=== PATIENT | female | born 1960 | race Caucasian/White ===

== ENCOUNTER → 2017-05-09 14:12 | Outpatient (CLI) | payer OTHER, SELFPAY ==
[2017-05-09 14:07] VITALS: BMI 32.4
--- NOTE | 2017-05-09 14:14 | RAD_ITS ---
STUDY: X-RAY - LEFT KNEE REASON FOR EXAM: Female, 56 years old. Pain TECHNIQUE: 5 view(s) of the knee. COMPARISON: None. FINDINGS: Normal visualized distal femur. Normal visualized proximal tibia and fibula. Normal proximal tibiofibular articulation. Minimal medial femorotibial compartment. Mild spurring at the lateral femorotibial compartment. Mild degenerative spurring at the patellofemoral articulation. Chondrocalcinosis of the menisci.. RAD/Knee 4 or More Views IMPRESSION: Mild degenerative changes of the knee. Chondrocalcinosis of the menisci Electronically Signed: Jf Arrieta DO at 10:00 EST Tel [phone], Service support ,
== END ==
PROVIDERS: Visit Provider Orthopaedic Surgery
DX: M17.12 Unilateral primary osteoarthritis, left knee (principal); M11.262 Other chondrocalcinosis, left knee
CPT/HCPCS: 73564

== ENCOUNTER → 2017-07-23 13:55 | Outpatient (CLI) | payer OTHER, SELFPAY ==
[2017-07-29 17:32] LABS: HPV Reflexed? NOT INDICATED
== END ==
PROVIDERS: Visit Provider Obstetrics & Gynecology
DX: Z01.419 Encounter for gynecological examination (general) (routine) without abnormal findings (principal)
CPT/HCPCS: 88175; G0145

== ENCOUNTER → 2017-08-22 06:34 | Outpatient (CLI) | payer OTHER, SELFPAY ==
[2017-08-22 07:19] LABS: Absolute Lymphocyte Count 3.07 X10^3/ul (0.83-4.51); Absolute Neutrophil Count 5.6 X10^3/uL (2.0-7.7); Basophil# 0.04 X10^3/uL; Basophil% 0.4 % (0-1); Eosinophil# 0.21 X10^3/uL; Eosinophils% 2.2 % (0-5); Hematocrit 42.8 % (37-47); Lymphocyte # 3.07 X10^3/ul (4.0); Lymphocyte % 32.7 % (19-41); Mean Corp Hgb Conc 32.7 g/gl (32-36); Mean Corpuscular Hgb 31.2 pg (27.0-32.0); Mean Corpuscular Volume 95.3 fL (81-99); Monocyte# 0.42 X10^3/uL; Monocyte% 4.5 % (0-10); Neutrophil # 5.62 X10^3/uL (2.7-7.7); Platelet Count 272 K/mm3 (150-450); RBC Distribution Width CV 13.4 % (11.6-14.6); RBC Distribution Width SD 46.7 fl (35.1-43.9); Red Blood Count 4.49 M/mm3 (4.2-5.4); White Blood Count 9.4 K/mm3 (4.4-11.0)
[2017-08-22 07:22] LABS: POSITIVE COUNT NO; POSITIVE DIFFERENTIAL NO; POSITIVE MORPHOLOGY NO
--- NOTE | 2017-08-22 07:25 | BI_ITS ---
MAMMOGRAPHY - BILATERAL SCREENING REASON FOR EXAM: Female, 56 years old. Routine annual screening examination. PERTINENT HISTORY: Non-contributory. TECHNIQUE: Digital bilateral breast anny (3D mammographic acquisition) in the CC and MLO projections. 2-D mediolateral oblique (MLO) and craniocaudad (CC) views of both breasts were obtained. CAD: Full Field Digital Mammography with Computer Added Detection was performed. COMPARISON: 09/15/2015 FINDINGS: Breast Composition: The breasts are heterogeneously dense, which may obscure small masses. There are no dominant masses or suspicious calcifications. No other significant abnormalities are identified. BI/SCREENING MAMM (CAD), BILAT IMPRESSION: Stable bilateral screening mammogram. Yearly follow-up mammogram recommended. (A) ASSESSMENT CATEGORY: BIRADS Category 2: Benign. A letter regarding these results will be sent to the patient by the facility within 30 days. Approximately 10% of breast cancers are not detected by mammography. A normal mammogram should not delay biopsy of a clinically suspicious abnormality. [id number] Electronically Signed: Laura Choi MD at 12:17 EDT Tel , Service support ,
[2017-08-22 09:12] LABS: Hemoglobin A1c 5.1 % (4.2-6.3)
[2017-08-22 09:47] LABS: ALB/GLOB Ratio 1.1 RATIO (0.9-2.4); AST(SGOT) 19 U/L (15-37); Alanine Aminotransfer ALT/SGPT 40 U/L (13-56); Albumin, Serum 3.8 g/dL (3.2-5.0); Alkaline Phosphatase 83 U/L (45-117); Anion Gap 6 (5-15); BUN 15 mg/dL (7-18); BUN/Creat Ratio 18.7 RATIO (10-20); CRP, High Sensitivity Cardiac 5.23 mg/L; Calcium,Total 8.9 mg/dL (8.5-10.1); Chloride 108 mmol/L (98-107); Cholesterol 167 mg/dL (200); EST Glomerular Filtration Rate 79 mL/min (>60); Est Glom Filt Rate - Afr Amer 95 mL/min (>60); Estradiol 53.4 pg/mL; Ferritin 175 ng/mL (8-252); Follicle Stimulating Hormone 23.7 mIU/mL; Free T3 3.2 pg/mL (2.18-3.98); GGTP 16 U/L (5-55); Globulin 3.4 g/dL (2.2-4.2); Glucose 98 mg/dL (74-106); High Density Lipoprotein 57 mg/dL; Protein, Total 7.2 g/dL (6.4-8.2); Sodium Level 140 mmol/L (136-145); T4 Free Direct 1.12 ng/dL (0.76-1.46); Thyroid Stim Hormone (TSH) 1.25 uIU/mL (0.358-3.74); Triglycerides 100 mg/dL; Very Low Density Lipoprotein 20 mg/dL (5-40)
[2017-08-22 10:36] LABS: Insulin 15.3 mU/L (2.6-37.6); Progesterone Level 23.71 ng/mL (See Comment); Vitamin B12 546 pg/mL (211-911); Vitamin D,25 Hydroxy 40.9 ng/mL (29.95-100.01)
[2017-08-28 14:07] LABS: Testosterone, % Free 1.62 % (0.50-2.80); Testosterone, Free 4.24 ng/dL (0.10-0.85); Testosterone, Total 262 ng/dL (3-41)
[2017-08-29 12:37] LABS: DHEA Sulfate 127.7 ug/dL (29.4-220.5)
== END ==
PROVIDERS: Visit Provider Obstetrics & Gynecology
DX: Z12.31 Encounter for screening mammogram for malignant neoplasm of breast (principal); N95.1 Menopausal and female climacteric states; E66.9 Obesity, unspecified; M25.50 Pain in unspecified joint; E55.9 Vitamin D deficiency, unspecified; R53.83 Other fatigue
CPT/HCPCS: 36415; 77063; 77067; 80053; 80061; 82306; 82607; 82627; 82670; 82728; 82977; 83001; 83036; 83525; 84144; 84402; 84403; 84439; 84443; 84481; 85025; 86141; 82626